=== PATIENT | male | born 1935 | race Caucasian/White ===

== ENCOUNTER 2016-08-28 15:31 | Outpatient (RCR) | payer MEDICARE, MEDICAID ==
[2016-07-31 13:03] LABS: BASOPHILS # (AUTO) 0.1 10^3/uL (0.0-0.1); BASOPHILS % (AUTO) 1 % (0-10); EOSINOPHILS # (AUTO) 0.4 10^3/uL (0.0-0.3); EOSINOPHILS % (AUTO) 9 % (0-10); LYMPHOCYTES # (AUTO) 0.7 X 10^3 (1.0-4.0); LYMPHOCYTES % (AUTO) 18 % (12-44); MEAN CORPUSCULAR HEMOGLOBIN 30 PG (25-34); MEAN CORPUSCULAR HGB CONC 34 G/DL (32-36); MEAN CORPUSCULAR VOLUME 90 FL (80-99); MEAN PLATELET VOLUME 10.5 FL (7.4-10.4); MONOCYTES # (AUTO) 0.5 X 10^3 (0.0-1.0); MONOCYTES % (AUTO) 12 % (0-12); NEUTROPHILS # (AUTO) 2.6 X 10^3 (1.8-7.8); NEUTROPHILS % (AUTO) 61 % (42-75); PLATELET COUNT 140 10^3/uL (130-400); RED BLOOD COUNT 3.83 10^6/uL (4.35-5.85); RED CELL DISTRIBUTION WIDTH 14.7 % (10.0-14.5); WHITE BLOOD COUNT 4.2 10^3/uL (4.3-11.0)
[2016-07-31 13:26] LABS: ALBUMIN 3.8 G/DL (3.2-4.5); BILIRUBIN,TOTAL 0.3 MG/DL (0.1-1.0); CALCIUM 8.8 MG/DL (8.5-10.1); CREATININE SERUM 1.42 MG/DL (0.60-1.30); POTASSIUM 4.9 MMOL/L (3.6-5.0); TOTAL PROTEIN 6.9 G/DL (6.4-8.2)
[~2016-08-28 15:31] MED LIST: ACET-6 PO; ACET-93 PO; ACET325T38 PO; ALBU2.5V4 INH; ALBU2.5V4 NEB; ALPR-557 PO; ALPR.5T PO; ALPR0.5T7 PO; AMLO10TA82 PO; AMLO5TAB2 PO; AUGMENTIN PO; AZIT250T PO; BETA15OI3 TP; CEFD300C3 PO; CEPH500C PO; CETI10TA20 PO; CITA20TA12 PO; CITA20TA7 PO; CLAR500T3 PO; CTLP20T PO; DCS100C PO; DIVA250T2 PO; DIVA250T4 PO; DULO30CA48 PO; FLUT9.9S; FLUT9.9S NS; HYDR-3454 PO; HYDR-3583 PO; HYDR-3812 PO; LEVO500T2 PO; LEVO500T80 PO; LEVO750T39 PO; LEVO750T9 PO; MAGN250T13 PO; MAGN311T5 PO; MAGN400C PO; MAGN400T39 PO; MNTL10T PO; MULT1CAP27 PO; NAPR220T76 PO; NEBU-113 MC; NF-FLON16G NS; SENN1TAB76 PO; TRAM-42 PO; TRIA15CR TOP; TRIA15OI9 TOP; [UNRECOGNIZED DRUG - OTHER] PC
== END 2016-10-29 | disposition home or self-care (01) ==
LOC: ONC 15:31
PROVIDERS: ATTEND Internal Medicine Hematology & Oncology
DX: C88.4 Extranodal marginal zone B-cell lymphoma of mucosa-associated lymphoid tissue [MALT-lymphoma] (principal); C85.89 Other specified types of non-Hodgkin lymphoma, extranodal and solid organ sites; C78.02 Secondary malignant neoplasm of left lung; J91.0 Malignant pleural effusion; I25.10 Atherosclerotic heart disease of native coronary artery without angina pectoris; J44.9 Chronic obstructive pulmonary disease, unspecified; F41.9 Anxiety disorder, unspecified; F32.9 Major depressive disorder, single episode, unspecified; Z87.891 Personal history of nicotine dependence; Z79.899 Other long term (current) drug therapy; Z45.2 Encounter for adjustment and management of vascular access device
CPT/HCPCS: 36591; 80053; 82232; 85025; 96523; 99213